=== PATIENT | male | born 1995 | race Caucasian/White ===

== ENCOUNTER 2018-07-17 22:16 | Emergency (ER) | payer OTHER, SELFPAY ==
[2018-07-17 22:18] VITALS: BP 145/66; PULSE 85; RESP 16; TEMP 36.9; O2SAT 98; BMI 32.8
--- NOTE | 2018-07-17 23:18 | ED.VISSUMM ---
- ER Visit Summary Date of Service: 07/17/18 Chief Complaint: Posterior right thigh pain and right leg pain status post fall Saturday History of Present Illness: The patient is a 22 M who presents because there is a nurse in the family who is concerned he may have compartment syndrome. He is scheduled for 22 performances in the next 22 days. He denies paresthesia, anesthesia motors. He denies pelvic pain or anterior groin pain. He complains of discomfort over his thigh. He is on no anticoagulant. Physical Examination: Vital signs noted. Blood pressure is elevated 145/66. There is no pain the patient over the pelvis and specifically over the right issue tuberosity. Is no pain the patient of the right greater trochanteric region. There is no pain with logrolling the right lower extremity. There is no pain abrasion of the patella or joint line. There is no laxity varus valgus stress testing. Negative Mckenna's test. Negative modified Arie's test. There is pain the patient over the contused area of his right leg. DP PT pulses are palpable. Is no pain the patient over the lateral or medial malleolus. There is no pain the patient over the base of the metatarsal. There is no tenderness other than over the contused area. The calf is not firm. There is no pain with passive movement of the ankle or toes. Test Results: None Emergency Department Course and Treatment: Education and patient was informed as well as parents that he does not have compartment syndrome. Treatment Plan: Rest, elevation and anti-inflammatory Disposition: Discharge Impression: 1. Contusion posterior right thigh initial encounter 2. Contusion right leg initial encounter This note was generated with [facility] dictation software. It may contain incorrect words, spelling, and punctuation that were not noted in review of the chart prior to signing ED Disposition - Plan for ED Patient: Disposition: Home or Assisted Living Chief Complaint: Lower Extremity Injury Instructions: ED Contusion Lower Ext Referrals: NOT,DEFINED [Primary Care Provider] -
== END 2018-07-17 23:53 | disposition home or self-care (01) ==
LOC: ED 23:35
PROVIDERS: Emergency Provider Emergency Medicine; Family Provider Orthopaedic Surgery; PCP Orthopaedic Surgery
DX: S70.11XA Contusion of right thigh, initial encounter (principal); S80.11XA Contusion of right lower leg, initial encounter; W19.XXXA Unspecified fall, initial encounter; Y93.9 Activity, unspecified
CPT/HCPCS: 99282